=== PATIENT | male | born 1960 ===

== ENCOUNTER 2022-11-22 09:17 | Outpatient (REF) | payer MEDICAID, SELFPAY | END 2022-11-22 09:18 | disposition home or self-care (01) | LOC: HO.SH 09:17 | PROVIDERS: PCP Internal Medicine; Visit Provider Internal Medicine | DX: Z01.118 Encounter for examination of ears and hearing with other abnormal findings (principal); Z46.1 Encounter for fitting and adjustment of hearing aid; H90.3 Sensorineural hearing loss, bilateral | CPT/HCPCS: 92557; 92567; 92593; 92700; 99499; V5266 ==

== ENCOUNTER 2023-02-20 09:31 | Outpatient (REF) | payer OTHER, SELFPAY ==
--- NOTE | 2023-02-20 10:21 | MHC.AU.HFU ---
Hearing Instrument Follow-Up- Binaural Date of Visit: 02/20/23 Right Ear: Oticon Nera 2 RITE, [id number], chroma beige Battery Size: 312 [employer] Employee: 3 Type of Mold: micromold Type of Wax Guard: prowax minifit Dispensed By: [facility] Left Ear: Oticon Nera 2 RITE, [id number], chroma beige Battery Size: 312 [employer] Employee: [id number] Type of Mold: micromold Type of Wax Guard: prowax minifit Dispensed By: [facility] Follow-Up Summary: The patient is here for a follow-up hearing aid check. He had his hearing evaluated here on 11/22/22. He reports more consistent hearing aid use and that they sound more comfortable now. We spent time reviewing cleaning. Debris was visualized in both hearing aid wax guards so we practiced brushing the molds and replacing the wax guards. Otoscopy reveals clear ear canals bilaterally. The patient does not wish to have any programming adjustments made today. He was given 42 #312 batteries today. He prefers to be seen at [facility] due to clinic location and proximity to his house, so next year for his annual he will likely return to [facility]. Additional follow-up as needed. Diagnosis Code(s): Primary Diagnosis: H90.3 Bilateral Sensorineural Hearing Loss Signature: Provider: Nelda Huertas, [facility]
== END 2023-02-20 09:32 | disposition home or self-care (01) ==
LOC: HO.SH 09:31
PROVIDERS: Visit Provider Internal Medicine
DX: Z01.118 Encounter for examination of ears and hearing with other abnormal findings (principal); Z46.1 Encounter for fitting and adjustment of hearing aid; H90.3 Sensorineural hearing loss, bilateral
CPT/HCPCS: 92593; 99499; V5266

== ENCOUNTER 2023-02-20 10:03 | Outpatient (REF) | payer OTHER, SELFPAY | END 2023-02-20 10:04 | disposition home or self-care (01) | LOC: HO.HAP 10:03 | PROVIDERS: Visit Provider Internal Medicine | DX: Z13.89 Encounter for screening for other disorder (principal) ==